=== PATIENT | female | born 1930 | race Caucasian/White ===

== ENCOUNTER 2018-12-17 09:04 | Outpatient (CLI) | payer MEDICARE, BC | END 2018-12-17 23:59 | disposition home or self-care (01) | LOC: RAD 09:04 | PROVIDERS: ATTEND Pediatrics | DX: K44.9 Diaphragmatic hernia without obstruction or gangrene (principal) | CPT/HCPCS: 74220; 74245 ==

== ENCOUNTER 2018-12-24 12:36 | Outpatient (CLI) | payer MEDICARE, BC ==
[~2018-12-24 12:36] MED LIST: SIMETHICONE/SOD BICARB/CIT AC PACKET PO ONE; barium sulfate 450ml oral suspension ONE
== END 2018-12-24 23:59 | disposition home or self-care (01) ==
LOC: RAD 12:36
PROVIDERS: ATTEND Pediatrics
DX: R13.14 Dysphagia, pharyngoesophageal phase (principal); K21.9 Gastro-esophageal reflux disease without esophagitis; Z79.899 Other long term (current) drug therapy
CPT/HCPCS: 74230